=== PATIENT | male | born 1935 | race Caucasian/White ===

== ENCOUNTER 2017-09-22 11:11 | Outpatient (CLI) | payer MEDICARE, BC | END 2017-09-22 11:12 | disposition home or self-care (01) | DRG 556 | LOC: CONVCARE 11:11 | PROVIDERS: ATTEND Orthopaedic Surgery | DX: M25.552 Pain in left hip (principal); M25.551 Pain in right hip; M25.562 Pain in left knee; M25.561 Pain in right knee; M16.0 Bilateral primary osteoarthritis of hip; M96.1 Postlaminectomy syndrome, not elsewhere classified | CPT/HCPCS: 73521; 73560 ==

== ENCOUNTER 2017-11-03 12:30 | Outpatient (CLI) | payer MEDICARE, BC | END 2017-11-03 12:31 | disposition home or self-care (01) | DRG 556 | LOC: CONVCARE 12:30 | PROVIDERS: ATTEND Orthopaedic Surgery | DX: M25.552 Pain in left hip (principal); M25.551 Pain in right hip ==